=== PATIENT | male | born 1990 | race African-American/Black ===

== ENCOUNTER 2017-07-27 05:58 | Observation (INO) | payer BC, OTHER ==
[~2017-07-27] VITALS: Ht 172.7 cm; Wt 100.8 kg
[~2017-07-27 05:58] MED LIST: ACETAMINOPHEN 500 MG CPLT PO PRN; ACETAMINOPHEN/HYDROcodone 325 MG/7.5 MG TAB PO PRN; MORPHINE SULFATE 2 MG/ML SYRINGE IV PRN; OMEP20TA39 PO; ONDANSETRON HCL 4 MG/2 ML VIAL IV PUSH PRN; SERT-132 PO; SODIUM CHLORIDE 0.9% FLUSH 10 ML FLUSH IV FLUSH PRN
[2017-07-27 06:30] VITALS: PULSE 54
[2017-07-27] MEDS ORDERED: SODIUM CHLORIDE 0.9% FLUSH 10 ML FLUSH IV FLUSH PRN (07:45)
--- NOTE | 2017-07-27 07:50 | HHI.HP ---
[facility] Service [facility] Primary Care Physician Jaison Pettit D.O. Admission Diagnosis Chest pain Diagnoses: (1) Chest pain Chief Complaint: Chest pain Travel History International Travel<30 Days: No Contact w/Intl Traveler <30 Da: No Traveled to Known Affected Are: No History of Present Illness This is a pleasant 27-year-old male patient with a known medical history of asthma and anxiety who presented to the ED with several days of intermittent chest pain and shortness of breath. Patient states that Wednesday while at rest he developed a left-sided chest pain that was squeezing in nature, he states that "it felt like someone was holding his heart in his hand and squeezing it", the sensation lasted a couple seconds and then went away. According to the patient he also has had intermittent left-sided chest pain that feels sharp in nature, comes and goes throughout the day with reports of radiation to his back. Patient states the sensation is worse when bending over. Denies any alleviating factors. He states he has never had this sensation before. Denies any associated diaphoresis, nausea, vomiting or shortness of breath. 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 He does state he quit smoking 3 months ago after smoking a total of 8 years. Denies any history of heart disease. Family history is not significant for any heart disease. Patient was given aspirin in ED with minimal relief of pain. EKG reviewed showing mild ST elevation in lead V1, likely early repolarization. No ectopy. White blood cell count mildly elevated at 14,000. CMP normal. Troponin trend flat. D- dimer flat. Chest x-ray normal. Patient denies any recent illness including fever, chills, cough, shortness of breath, headache, abdominal pain, nausea, vomiting, diarrhea dysuria. Review of Systems Constitutional: DENIES: Fever, Chills Eyes: DENIES: Blurred vision, Diplopia Respiratory: DENIES: Cough, Sputum production, Shortness of breath Cardiovascular: COMPLAINS OF: Chest pain, Palpitations Gastrointestinal: DENIES: Abdominal pain, Black stools, Bloody stools, Constipation, Diarrhea, Nausea, Vomiting, Difficulty Swallowing, Anorexia Musculoskeletal: DENIES: Joint pain Hematologic/lymphatic: DENIES: Bruising Psychiatric: COMPLAINS OF: Anxiety Except as stated in HPI: all other systems reviewed are Neg Past Family Social History Past Medical History Anxiety Asthma Past Surgical History Appendectomy Reported Medications Active No Active Prescriptions or Reported Medications Allergies: Coded Allergies: No Known Allergies (Unverified Allergy, Unknown, 07/27/17) Active Ordered Medications Current Medications Medications (Trade) Dose Ordered Sig/Rich Route Start Time Stop Time Status Last Admin (NS Flush) 2 ml UNSCH PRN IV FLUSH 07/27/17 04:45 (NS Flush) 2 ml UNSCH PRN IV FLUSH 07/27/17 04:45 (Tylenol) 500 mg Q4H PRN PO 07/27/17 04:45 ([place] 7.5-325 Mg) 1 tab Q4H PRN PO 07/27/17 04:45 07/27/17 06:48 (Morphine Inj) 2 mg Q4H PRN IV 07/27/17 04:45 (Zofran Inj) 4 mg Q6H PRN IV PUSH 07/27/17 04:45 (NS Flush) 2 ml UNSCH PRN IV FLUSH 07/27/17 07:45 (NS Flush) 2 ml BID IV FLUSH 07/27/17 09:00 (Toradol Inj) 30 mg ONCE ONCE IV PUSH 07/27/17 09:00 07/27/17 09:01 Family History Neither mother or father has a history of cardiac disease. Patient does state that his and on his mother's side did have cardiovascular disease was diagnosed in her 40s. Social History Patient states he quit smoking 3 months ago, prior to that he smoked half pack per day for 8 years. Admits to occasional social alcohol use. Does admit to marijuana use every other day. Denies any other illicit drug use. Physical Exam Physical Exam GENERAL: Well-developed, well-nourished patient in NAD. SKIN: Warm and dry. No rash. HEAD: Normocephalic. Atraumatic. EYES: Pupils equal and round. No scleral icterus. No injection or drainage. ENT: No nasal bleeding or discharge. Mucous membranes pink and moist. NECK: Supple. Trachea midline. CARDIOVASCULAR: Regular rate and rhythm. S1, S2 noted. No murmur appreciated. No chest pain to palpation. RESPIRATORY: No accessory muscle use. Clear to auscultation. Breath sounds equal bilaterally. GASTROINTESTINAL: Abdomen soft, non-tender, nondistended. Normoactive bowel sounds x4. MUSCULOSKELETAL: No obvious deformities. Extremities without clubbing, cyanosis , or edema. NEUROLOGICAL: Awake and alert. No obvious cranial nerve deficits. Motor grossly within normal limits. 5/5 muscle strength in bilateral upper and lower extremities. Normal speech. PSYCHIATRIC: Appropriate mood and affect; insight and judgment normal. Septic Shock Reassessment Septic shock perfusion: reassessment completed Caprini VTE Risk Assessment Caprini VTE Risk Assessment: No/Low Risk (score <= 1) Caprini Risk Assessment Model Point Value = 1 Point Value = 2 Point Value = 3 Point Value = 5 Age 41-60 Minor surgery BMI > 25 kg/m2 Swollen legs Varicose veins or History of unexplained or recurrent spontaneous Oral contraceptives or hormone replacement Sepsis (< 1 month) Serious lung disease, including pneumonia (< 1 month) Abnormal pulmonary function Acute myocardial infarction Congestive heart failure (< 1 month) History of inflammatory bowel disease Medical patient at bed rest Age 61-74 Arthroscopic surgery Major open surgery (> 45 min) Laparoscopic surgery (> 45 min) Malignancy Confined to bed (> 72 hours) Immobilizing plaster cast Central venous access Age >= 75 History of VTE Family history of VTE Factor V Leiden Prothrombin [id number] Lupus anticoagulant Anticardiolipin antibodies Elevated serum homocysteine Heparin-induced thrombocytopenia Other congenital or acquired thrombophilia Stroke (< 1 month) Elective arthroplasty Hip, pelvis, or leg fracture Acute spinal cord injury (< 1 month) Prophylaxis Regimen Total Risk Factor Score Risk Level Prophylaxis Regimen 0-1 Low Early ambulation 2 Moderate Order ONE of the following: *Sequential Compression Device (SCD) *Heparin 5000 units SQ BID 3-4 Higher Order ONE of the following medications: *Heparin 5000 units SQ TID *Enoxaparin/Lovenox 40 mg SQ daily (WT < 150 kg, CrCl > 30 mL/min) *Enoxaparin/Lovenox 30 mg SQ daily (WT < 150 kg, CrCl > 10-29 mL/min) *Enoxaparin/Lovenox 30 mg SQ BID (WT < 150 kg, CrCl > 30 mL/min) AND/OR *Sequential Compression Device (SCD) 5 or more Highest Order ONE of the following medications: *Heparin 5000 units SQ TID (Preferred with Epidurals) *Enoxaparin/Lovenox 40 mg SQ daily (WT < 150 kg, CrCl > 30 mL/min) *Enoxaparin/Lovenox 30 mg SQ daily (WT < 150 kg, CrCl > 10-29 mL/min) *Enoxaparin/Lovenox 30 mg SQ BID (WT < 150 kg, CrCl > 30 mL/min) AND *Sequential Compression Device (SCD) Assessment and Plan Problem List: (1) Chest pain ICD Code: R07.9 - Chest pain, unspecified Plan: Patient has been admitted to the chest pain center for observation. Serial EKGs and serial troponins have been ordered for ruling out ACS purposes. Initial 2 troponins flat.. EKG reviewed showing sinus bradycardia rhythm with controlled heart rate, mild ST changes in V1, likely early repolarization.. Chest x-ray reviewed which is negative for any cardiopulmonary events. Patient placed on cardiac telemetry, monitor for any arrhythmias. No reports of any acute events overnight. Pain control with Toradol. Zofran available for any nausea. Supplemental O2 as needed, patient is comfortable on room air. Patient does have a history of elevated lipids, lipid panel added to labs. Continue to follow. Patient will undergo a cardiac treadmill stress test to further rule out any ischemia. Further treatment plan and hospitalization will depend on nuclear imaging results. Patient is stable at this time and agreeable to the plan. Assessment and Plan Patient did perform a treadmill cardiac stress test, images reviewed by on-call maintenance supervisor 2nd shift Dr. Case, showing baseline T-wave inversions indicating that this treadmill is nondiagnostic. Therefore patient will undergo Lexiscan. Further treatment plan will depend on nuclear imaging results. Patient did undergo a cardiac nuclear stress test and report reviewed showing normal EF with no ischemia. Patient updated about results of nuclear stress test. Symptoms have overall improved and patient has been educated about the importance of returning to ED if symptoms persist or worsen. Patient is stable at this time and agreeable to the plan. Kim Cleaning Jul 27, 2017 07:50
[2017-07-27 08:00] VITALS: BP 127/58; PULSE 53; PULSE 67; RESP 16; TEMP 98; O2SAT 96
[2017-07-27 08:27] LABS: TROPONIN I LESS THAN 0.02 NG/ML (0.02-0.05)
[2017-07-27] MEDS ORDERED: KETOROLAC TROMETHAMINE 30 MG/ML (IVP) VIAL IV PUSH ONE (09:00)
[2017-07-27] MEDS ORDERED: SODIUM CHLORIDE 0.9% FLUSH 10 ML FLUSH IV FLUSH SCH (09:00)
[2017-07-27 10:53] LABS: CHOLESTEROL/ HDL RATIO 4.83 RATIO; HDL CHOLESTEROL 37.2 MG/DL (40.0-60.0)
--- NOTE | 2017-07-27 11:15 | TR ---
Date Performed: 07/27/2017 Time Performed: 10:17:12 DOCTOR: Jeniffer Case DRUG LIST: CLINICAL HISTORY: REASON FOR TEST: Chest pain REASON FOR ENDING: OBSERVATION: CONCLUSION: Que protocol completed test stopped secondary to reaching target heart rate. Mild chest discomfort during recovery phase, quickly resolved. Good BP response. Recovery quick. Great exe rcise tolerance. Some ST depression seen in recovery phase leads II, III, V5 and V6. Maximum GB=484 T arget HR Syqhycxv=358.0% Maximum ZZ=782/90 Total Exercise Time=8:18 COMMENTS: Baseline T wave inversions, nondiagnostic ST changes with exercise
[2017-07-27 12:00] VITALS: BP 121/61; PULSE 98; RESP 16; TEMP 97.6; O2SAT 97
[2017-07-27] MEDS ORDERED: amLODIPine BESYLATE 5 MG TAB PO SCH (12:00)
[2017-07-27] MEDS ORDERED: NITROGLYCERIN 2% OINT 1 GM PACKET TOPICAL SCH (12:00)
[2017-07-27] MEDS ORDERED: REGADENOSON INJ 0.4 MG/5 ML SYR IV ONE (13:07)
[2017-07-27 14:05] LABS: TROPONIN I LESS THAN 0.02 NG/ML (0.02-0.05)
[2017-07-27 14:26] VITALS: O2SAT 97
--- NOTE | 2017-07-27 14:52 | RADRPT ---
EXAM DATE/TIME: 07/27/2017 13:00 [facility] COMPARISON: No previous studies available for comparison. INDICATIONS : Left sided chest pain with dyspnea for three weeks. Abnormal exercise treadmill test. DOSE: 35 mCi Tc99m Myoview at stress. 11 mCi Tc99m Myoview at rest. 0.4 mg Lexiscan STRESS SYMPTOMS: Heart racing. EJECTION FRACTION: 63% MEDICAL HISTORY : Asthma. SURGICAL HISTORY : Appendectomy. ENCOUNTER: Initial ACUITY: 3 weeks PAIN SCALE: 4/10 LOCATION: Left chest TECHNIQUE: The patient underwent pharmacologic stress with infusion of prescribed dose. Continuous ECG tracing was monitored during stress. Gated SPECT imaging was performed after stress and conventional SPECT i maging was performed at rest. The examination was performed on a SPECT/CT scanner, both attenuation and non-corrected datasets were reviewed. FINDINGS: DISTRIBUTION: The maximum perfused segment at stress is in the inferior wall. PERFUSION STUDY: The pattern of perfusion at stress is within normal limits. GATED STUDY: There is intact wall motion and thickening without hypokinetic or dyskinetic segments. CONCLUSION: 1. No reversible perfusion defects to suggest ischemia. 2. Normal ejection fraction. RISK CATEGORY: Low (<1% Annual Mortality Rate) Blaise Serrano MD on July 27, 2017 at 14:49 Board Certified Radiologist. This report was verified electronically.
--- NOTE | 2017-07-27 15:21 | HHI.DCPOC ---
Discharge Care Plan Diagnosis: (1) Chest pain Additional Problems Patient has mildly elevated triglycerides and low HDL. Educated on importance of losing weight and exercise. Patient encouraged follow-up with PCP for repeat check and possible need for statin. Patient is aware and motivated to take measures to decrease his triglyceride level. Goals to Promote Your Health * To prevent worsening of your condition and complications * To maintain your health at the optimal level Directions to Meet Your Goals Take your medications as prescribed Follow your dietary instruction Follow activity as directed Keep your appointments as scheduled Take your immunizations and boosters as scheduled If your symptoms worsen call your PCP, if no PCP go to Urgent Care Center or Emergency Room Smoking is Dangerous to Your Health. Avoid second hand smoke Call the 24-hour hour crisis hotline for domestic abuse at Kim Cleaning Jul 27, 2017 15:21
[2017-07-27 15:48] VITALS: PULSE 58
[2017-07-27 16:00] VITALS: BP 131/68; PULSE 81; RESP 18; TEMP 96.8; O2SAT 96
--- NOTE | 2017-07-27 17:40 | EKG ---
Date Performed: 07/27/2017 Time Performed: 13:08:50 PTAGE: 27 years EKG: SINUS BRADYCARDIA EARLY REPOLARIZATION BORDERLINE ECG Since PREVIOUS TRACING , no significant change noted PREVIOUS TRACIN07/27/2017 07.36 DOCTOR: Jeniffer Case Interpretating Date/Time 07/27/2017 17:38:28
--- NOTE | 2017-07-27 17:41 | TR ---
Date Performed: 07/27/2017 Time Performed: 13:32:52 DOCTOR: Jeniffer Case DRUG LIST: CLINICAL HISTORY: CHEST PAIN REASON FOR TEST: Chest pain REASON FOR ENDING: OBSERVATION: CONCLUSION: COMMENTS: Lexiscan stress test was performed under standard four minute protocol. Radionuclide was injected one minute prior to ending the test. No electrocardiographic abormalities were present t o suggest ischemia. Nuclear imaging and interpretation are pending.
--- NOTE | 2017-07-27 17:52 | EKG ---
Date Performed: 07/27/2017 Time Performed: 07:36:36 PTAGE: 27 years EKG: SINUS BRADYCARDIA ST ELEVATION, PROBABLY EARLY REPOLARIZATION BORDERLINE ECG Since PREVIOUS TRACING , no significant change noted PREVIOUS TRACIN03/15/2013 01.19 DOCTOR: Jeniffer Case Interpretating Date/Time 07/27/2017 17:50:42
== END 2017-07-27 16:10 | disposition home or self-care (01) ==
LOC: PHEDDLT 05:58 → PH3B 06:08
PROVIDERS: ADMIT Internal Medicine Cardiovascular Disease; ATTEND Internal Medicine Cardiovascular Disease
DX: R07.89 Other chest pain (principal); J45.909 Unspecified asthma, uncomplicated; F41.9 Anxiety disorder, unspecified; R06.02 Shortness of breath; F12.90 Cannabis use, unspecified, uncomplicated; E78.1 Pure hyperglyceridemia; R94.31 Abnormal electrocardiogram [ECG] [EKG]; Z87.891 Personal history of nicotine dependence; Z82.49 Family history of ischemic heart disease and other diseases of the circulatory system
CPT/HCPCS: 71046; 78452; 80048; 80061; 82550; 82552; 83735; 84484; 85025; 85379; 85610; 85730; 93005; 93017; 96374; 99285; A9502; G0378; J1885; J2270; J2785